=== PATIENT | male | born 1960 | race Caucasian/White ===

== ENCOUNTER 2019-12-28 08:45 | Emergency (ER) | payer OTHER ==
--- NOTE | 2019-12-28 08:59 | EDM.PDOC ---
ED HPI GENERAL MEDICAL PROBLEM - General Chief Complaint: Trauma Stated Complaint: SMASHED LEFT INDEX FINGER Time Seen by Provider: 12/28/19 08:52 Source of Information: Reports: Patient, RN, RN Notes Reviewed, Significant Other History Limitations: Reports: No Limitations - History of Present Illness INITIAL COMMENTS - FREE TEXT/NARRATIVE: Patient presents to the ED at [facility] for the evaluation of a crush injury to the left index finger. Patient states he was using a mallot to put pavers into the ground when he hit the left index finger with the mallot. He denies any previous injury or trauma. Denies any numbness, tingling, or paresthesia. He has full ROM of the finger. The tip of the left index finger is the only affected area. Tetanus status is up to date. Onset: Today Onset Date: 12/28/19 Onset Time: 08:30 Duration: Constant Location: Reports: Upper Extremity, Left (Left index finger) Quality: Reports: Pressure Severity: Mild Improves with: Reports: Rest Worsens with: Reports: Movement Context: Reports: Trauma Associated Symptoms: Reports: No Other Symptoms Treatments VETERINARIAN ASSISTANT: Reports: Other (see below) (None) Left Finger-Index Pain Score (Numeric/FACES): 10 - Related Data Allergies Allergy/AdvReac Type Severity Reaction Status Date / Time hydrocodone Allergy Itching Verified 12/28/19 08:59 terazosin [From Hytrin] Allergy Other Verified 12/28/19 08:59 Home Meds: Home Meds Aspirin [Halfprin] 81 mg PO DAILY 04/25/18 [History] atorvaSTATin Calcium [Atorvastatin Calcium] 80 mg PO DAILY 04/25/18 [History] lisinopriL [Prinivil] 20 mg PO DAILY 04/25/18 [History] metFORMIN [Glucophage] 500 mg PO DAILY 04/25/18 [History] Metoprolol Succinate [Toprol XL] 25 mg PO DAILY 08/21/19 [History] Venlafaxine [Effexor XR] 150 mg PO DAILY 08/21/19 [History] amLODIPine [Norvasc] 5 mg PO DAILY 08/21/19 [History] tadalafiL [Cialis] 5 mg PO DAILY PRN 08/21/19 [History] Past Medical History Cardiovascular History: Reports: CAD, High Cholesterol, Hypertension, Other (See Below) Other Cardiovascular History: aortic stenosis Respiratory History: Reports: Other (See Below) Other Respiratory History: URIARTE Gastrointestinal History: Reports: Diverticulosis, Other (See Below) Other Gastrointestinal History: diverticulitis Genitourinary History: Reports: BPH Musculoskeletal History: Reports: Other (See Below) Other Musculoskeletal History: left wrist pain. triquentral chip fracture. degenerative lumbar disc Psychiatric History: Reports: Depression Endocrine/Metabolic History: Reports: Diabetes, Type II, Other (See Below) Other Endocrine/Metabolic History: hypotestosteronism - Past Surgical History Musculoskeletal Surgical History: Review of Systems - Review of Systems Review Of Systems: Comprehensive ROS is negative, except as noted in HPI. ED EXAM, GENERAL - Physical Exam Exam: See Below Exam Limited By: No Limitations General Appearance: Alert, No Apparent Distress Respiratory/Chest: No Respiratory Distress, Lungs Clear, Normal Breath Sounds Cardiovascular: Normal Peripheral Pulses, Regular Rate, Rhythm Peripheral Pulses: 2+: Radial (L), Radial (R) Neurological: Alert, Oriented Skin Exam: Warm, Dry, Wound/Incision (Left index finger; C shaped laceration; no bleeding; some nail involvement on the medical aspect) Course - Vital Signs Last Recorded V/S: Last Vital Signs Temp 98.5 F 12/28/19 09:01 Pulse 87 12/28/19 09:01 Resp 16 12/28/19 09:01 BP 115/83 12/28/19 09:01 Pulse Ox 98 12/28/19 09:01 - Radiology Interpretation Free Text/Narrative:: Xray, Left Index finger: No acute fracture or dislocation; see scanned report in EMR Departure - Departure Time of Disposition: 09:41 Disposition: Home, Self-Care 01 Condition: Good Clinical Impression: Crushing injury of finger of left hand Finger laceration Qualifiers: Encounter type: initial encounter Finger: index finger Damage to nail status: without damage Foreign body presence: without foreign body Laterality: left Qualified Code(s): S61.211A - Laceration without foreign body of left index finger without damage to nail, initial encounter - Discharge Information *PRESCRIPTION DRUG MONITORING PROGRAM REVIEWED*: Not Applicable *COPY OF PRESCRIPTION DRUG MONITORING REPORT IN PATIENT MAN: Not Applicable Instructions: Crush Injury of the Hand, [id number], Wound Care, Adult, Laceration Care, Adult Referrals: Subha Mueller DO [Primary Care Provider] - 12/28/19 9:41 am (See Dr. Mueller this Monday in clinic) Forms: ED Department Discharge Additional Instructions: 1. Keep area clean and dry 2. Keep bandage on through the weekend 3. Ice several times a day 4. Tylenol only; avoid Ibuprofen 5. Make appointment this Monday to see Dr. Mueller in clinic to change dressage and recheck wound 6. Call with any questions/concerns this Sepsis Event Note (ED) - Focused Exam Vital Signs: Vital Signs Temp Pulse Resp BP Pulse Ox 12/28/19 09:01 98.5 F 87 16 115/83 98 - Problem List Review Problem List Initiated/Reviewed/Updated: Yes - Assessment/Plan Assessment:: 1. Crush injury, left index finger 2. Finger laceration Plan: 1. Keep area clean and dry 2. Keep bandage on through the weekend 3. Ice several times a day 4. Tylenol only; avoid Ibuprofen 5. Make appointment this Monday to see Dr. Mueller in clinic to change dressage and recheck wound 6. Call with any questions/concerns this
--- NOTE | 2019-12-28 09:31 | CR ---
[id number] RAD/RAD Fingers Left Exam: RAD Fingers Left Indication:CRUSH INJURY. Comparison: No prior imaging for comparison. Discussion: Laceration at the tip of the 2nd digit. No underlying fracture or dislocation. Impression: As above. Scout Ahuja MD 12/28/19 0930 Thank you for allowing us to participate in the care of your patient.
== END 2019-12-28 09:55 | disposition home or self-care (01) ==
LOC: VM.ED 08:45
DX: S67.191A Crushing injury of left index finger, initial encounter (principal); I25.10 Atherosclerotic heart disease of native coronary artery without angina pectoris; E78.00 Pure hypercholesterolemia, unspecified; I10 Essential (primary) hypertension; F32.9 Major depressive disorder, single episode, unspecified; E11.9 Type 2 diabetes mellitus without complications; Z88.5 Allergy status to narcotic agent; Z88.8 Allergy status to other drugs, medicaments and biological substances; Z79.82 Long term (current) use of aspirin; Z79.84 Long term (current) use of oral hypoglycemic drugs; Z79.899 Other long term (current) drug therapy; W23.0XXA Caught, crushed, jammed, or pinched between moving objects, initial encounter
CPT/HCPCS: 73140-F1; 99283-25; 99283-GF

== ENCOUNTER 2021-07-04 04:10 | Emergency (ER) | payer OTHER ==
[2021-07-04] MEDS ORDERED: Acetaminophen 500 MG Tab PO ONE (04:41)
[2021-07-04 05:40] LABS: CORONAVIRUS COVID-19 NAA POSITIVE (NEGATIVE)
[2021-07-04 05:41] LABS: RESPIRATORY SYNCYTIAL VIR NAA NEGATIVE (NEGATIVE)
[2021-07-04] MEDS ORDERED: Take Home: Albuterol 18 GM Inhaler, 1 Inhaler Pack INH PRN (06:01)
[2021-07-04] MEDS ORDERED: Benzonatate 100 MG Cap PO SCH (08:00)
== END 2021-07-04 06:25 | disposition home or self-care (01) ==
LOC: VM.ED 04:10
DX: U07.1 COVID-19 (principal); I25.10 Atherosclerotic heart disease of native coronary artery without angina pectoris; E78.00 Pure hypercholesterolemia, unspecified; I10 Essential (primary) hypertension; E11.9 Type 2 diabetes mellitus without complications; Z88.5 Allergy status to narcotic agent; Z88.8 Allergy status to other drugs, medicaments and biological substances; Z79.82 Long term (current) use of aspirin; Z79.899 Other long term (current) drug therapy; Z87.891 Personal history of nicotine dependence; Z79.84 Long term (current) use of oral hypoglycemic drugs
CPT/HCPCS: 0241U; 99283; A9270-GY

== ENCOUNTER 2023-08-06 15:13 | Emergency (ER) | payer OTHER | END 2023-08-06 16:06 | disposition home or self-care (01) | LOC: VM.ED 15:13 | DX: I10 Essential (primary) hypertension (principal); E78.00 Pure hypercholesterolemia, unspecified; I25.10 Atherosclerotic heart disease of native coronary artery without angina pectoris; E11.9 Type 2 diabetes mellitus without complications; Z86.16 Personal history of COVID-19; Z79.82 Long term (current) use of aspirin; Z79.84 Long term (current) use of oral hypoglycemic drugs; Z79.899 Other long term (current) drug therapy; Z88.5 Allergy status to narcotic agent; Z88.8 Allergy status to other drugs, medicaments and biological substances | CPT/HCPCS: 99283 ==